=== PATIENT | male | born 1985 | race Caucasian/White ===

== ENCOUNTER 2016-08-13 20:18 | Emergency (ER) | payer BC ==
[~2016-08-13] VITALS: Ht 167.6 cm; Wt 61.2 kg
[2016-08-13 20:20] VITALS: BP 112/68; PULSE 54; RESP 18; TEMP 98.1; O2SAT 100
--- NOTE | 2016-08-13 20:20 | NUR ---
Patient to ER bed 4 to gown for evaluation. Side rails up.
--- NOTE | 2016-08-13 20:21 | NUR ---
PT IS AOX4, C/O CHEST PAIN THAT COMES AND GOES WITH PAIN SCALE 4/10. PT DENIES N/V.
--- NOTE | 2016-08-13 20:21 | NUR ---
ER at bedside examining patient.
[2016-08-13] MEDS ORDERED: ASPIRIN 325 MG TABLET PO ONE (20:45)
[2016-08-13 20:52] LABS: BASOPHILS % (AUTO) 0.5 % (0.0-2.0); EOSINOPHILS # (AUTO) 0.3 K/uL (0.0-0.4); EOSINOPHILS % (AUTO) 3.9 % (0.0-4.0); HEMATOCRIT 45.9 % (36-54); HEMOGLOBIN 15.6 g/dL (14.0-18.0); LYMPHOCYTES # (AUTO) 2.4 K/uL (1.0-5.5); LYMPHOCYTES % (AUTO) 34.2 % (20.5-51.5); MEAN CORPUSCULAR HEMOGLOBIN 29 pg (27-31); MEAN CORPUSCULAR HGB CONC 34 % (32-36); MEAN CORPUSCULAR VOLUME 84 fL (79.0-98.0); MONOCYTES # (AUTO) 0.6 K/uL (0.0-1.0); MONOCYTES % (AUTO) 8.8 % (1.7-9.3); NEUTROPHILS # (AUTO) 3.6 K/uL (1.8-7.7); NEUTROPHILS % (AUTO) 52.6 % (40.0-70.0); PLATELET COUNT (AUTO) 226 K/uL (130-430); RED BLOOD CELL COUNT(AUTO) 5.45 MIL/uL (4.2-6.2); RED CELL DISTRIBUTION WIDTH 12.1 % (9.0-15.0); WHITE BLOOD COUNT (AUTO) 6.9 K/uL (4.8-10.8)
[2016-08-13 21:07] LABS: CALCIUM 9.3 mg/dL (8.4-11.0); CREATININE 1.32 mg/dL (0.55-1.30); POTASSIUM 3.9 mmol/L (3.5-5.1)
[2016-08-13 21:11] LABS: ALBUMIN 4.4 g/dL (3.4-4.8); TOTAL BILIRUBIN 0.6 mg/dL (0.0-1.0); TOTAL PROTEIN, SERUM 7.8 g/dL (6.4-8.3)
[2016-08-13 21:14] LABS: PROTHROMBIN TIME 10.5 SECS (9.5-12.5)
[2016-08-13 22:00] VITALS: BP 112/68; PULSE 54; RESP 18; TEMP 98.1; O2SAT 100
--- NOTE | 2016-08-13 22:00 | NUR ---
Patient given written and verbal discharge instructions and verbalizes understanding. ER MD discussed with patient the results and treatment provided. Patient in stable condition. ID arm band removed. Rx of RANITIDINE HCL 120 MG given. Patient educated on pain management and to follow up with PMD. Pain Scale 0/10. Opportunity for questions provided and answered.
== END 2016-08-13 22:00 | disposition home or self-care (01) ==
LOC: SED 20:18
DX: K21.9 Gastro-esophageal reflux disease without esophagitis (principal)
CPT/HCPCS: 36415; 71010; 80053; 80061; 82550-TC; 83880; 84484; 85025; 85610-TC; 85730-TC; 93005; 99285

== ENCOUNTER 2018-09-15 02:43 | Emergency (ER) | payer BC, OTHER ==
[~2018-09-15] VITALS: Ht 177.8 cm; Wt 74.8 kg
[2018-09-15 02:51] VITALS: BP_SYST 127
[2018-09-15 04:44] VITALS: BP_SYST 135
== END 2018-09-15 04:44 | disposition home or self-care (01) ==
LOC: SED 02:43
DX: M79.604 Pain in right leg (principal)
CPT/HCPCS: 93971; 99284

== ENCOUNTER 2019-01-15 02:26 | Emergency (ER) | payer OTHER ==
[~2019-01-15] VITALS: Ht 175.3 cm; Wt 74.8 kg
[2019-01-15 02:30] VITALS: BP_SYST 121
--- NOTE | 2019-01-15 02:30 | NUR ---
Placed in room 6. Placed on acid loader, blood pressure machine and pulse oximeter. To gown for exam. Side rails up.
--- NOTE | 2019-01-15 02:38 | NUR ---
HÉCTOR Jay at bedside examining patient.
--- NOTE | 2019-01-15 02:40 | NUR ---
Pt C/O chest pain/burning since 1800 yesterday evening. Has hx of anxiety and GERD. Denies any shortness of breath, cough, N/V/D, diaphoresis or any other symptoms at this time. Will continue to monitor.
[2019-01-15] MEDS ORDERED: ALPRAZolam 0.25 MG TABLET PO ONE (02:45)
[2019-01-15] MEDS ORDERED: ASPIRIN 81 MG TAB.CHEW PO ONE (02:45)
[2019-01-15 03:18] LABS: BASOPHILS % (AUTO) 0.5 % (0.0-2.0); EOSINOPHILS # (AUTO) 0.2 K/uL (0.0-0.4); EOSINOPHILS % (AUTO) 2.8 % (0.0-4.0); HEMOGLOBIN 14.7 g/dL (14.0-18.0); LYMPHOCYTES # (AUTO) 2.5 K/uL (1.0-5.5); MEAN CORPUSCULAR HEMOGLOBIN 29 pg (27-31); MEAN CORPUSCULAR HGB CONC 34 % (32-36); MEAN CORPUSCULAR VOLUME 84 fL (79.0-98.0); MONOCYTES # (AUTO) 0.6 K/uL (0.0-1.0); MONOCYTES % (AUTO) 6.8 % (1.7-9.3); NEUTROPHILS # (AUTO) 5.3 K/uL (1.8-7.7); NEUTROPHILS % (AUTO) 60.9 % (40.0-70.0); PLATELET COUNT (AUTO) 231 K/uL (130-430); RED BLOOD CELL COUNT(AUTO) 5.15 MIL/uL (4.2-6.2); RED CELL DISTRIBUTION WIDTH 12.5 % (9.0-15.0); WHITE BLOOD COUNT (AUTO) 8.7 K/uL (4.8-10.8)
[2019-01-15 03:31] LABS: CALCIUM 9.2 mg/dL (8.4-11.0); CREATININE 1.19 mg/dL (0.55-1.30); POTASSIUM 3.7 mmol/L (3.5-5.1)
--- NOTE | 2019-01-15 03:34 | NUR ---
Pt is resting quietly in bed, no acute distress noted at this time. Will continue to monitor.
[2019-01-15 03:37] LABS: ALBUMIN 3.9 g/dL (3.4-4.8); TOTAL BILIRUBIN 0.7 mg/dL (0.0-1.0)
[2019-01-15] MEDS ORDERED: MAG HYDROX/AL HYDROX/SIMETH 30 ML, LIDOCAINE VISCOUS 2% 15ML (PO) 10 ML, DICYCLOMINE HC... PO ONE ×3 (03:45)
[2019-01-15 03:51] VITALS: BP_SYST 112
--- NOTE | 2019-01-15 03:52 | NUR ---
Patient given written and verbal discharge instructions and verbalizes understanding. ER MD discussed with patient the results and treatment provided. Patient in stable condition. ID arm band removed. Rx of Zantac given. Patient educated on pain management and to follow up with PMD. Pain Scale 0. Opportunity for questions provided and answered. Medication side effect fact sheet provided.
== END 2019-01-15 03:52 | disposition home or self-care (01) ==
LOC: SED 02:26
DX: F41.9 Anxiety disorder, unspecified (principal); R07.89 Other chest pain; K21.9 Gastro-esophageal reflux disease without esophagitis
CPT/HCPCS: 36415; 80053; 83880; 84484; 85025; 93005; 99284; J2001

== ENCOUNTER 2019-05-06 02:58 | Emergency (ER) | payer OTHER ==
[~2019-05-06] VITALS: Ht 177.8 cm; Wt 77.1 kg
[2019-05-06 03:25] VITALS: BP_SYST 138
[2019-05-06 04:37] LABS: BASOPHILS % (AUTO) 0.6 % (0.0-2.0); EOSINOPHILS # (AUTO) 0.2 K/uL (0.0-0.4); EOSINOPHILS % (AUTO) 3.2 % (0.0-4.0); HEMATOCRIT 42.7 % (36-54); HEMOGLOBIN 14.9 g/dL (14.0-18.0); LYMPHOCYTES # (AUTO) 1.9 K/uL (1.0-5.5); LYMPHOCYTES % (AUTO) 34.4 % (20.5-51.5); MEAN CORPUSCULAR HEMOGLOBIN 29 pg (27-31); MEAN CORPUSCULAR HGB CONC 35 % (32-36); MEAN CORPUSCULAR VOLUME 84 fL (79.0-98.0); MONOCYTES # (AUTO) 0.5 K/uL (0.0-1.0); MONOCYTES % (AUTO) 9.1 % (1.7-9.3); NEUTROPHILS # (AUTO) 2.9 K/uL (1.8-7.7); NEUTROPHILS % (AUTO) 52.7 % (40.0-70.0); PLATELET COUNT (AUTO) 220 K/uL (130-430); RED BLOOD CELL COUNT(AUTO) 5.12 MIL/uL (4.2-6.2); RED CELL DISTRIBUTION WIDTH 12.9 % (9.0-15.0); WHITE BLOOD COUNT (AUTO) 5.5 K/uL (4.8-10.8)
[2019-05-06 04:56] LABS: CALCIUM 9.1 mg/dL (8.4-11.0); CREATININE 1.05 mg/dL (0.55-1.30); POTASSIUM 3.8 mmol/L (3.5-5.1)
[2019-05-06 04:58] LABS: ALBUMIN 4.6 g/dL (3.4-4.8); TOTAL BILIRUBIN 0.7 mg/dL (0.0-1.0)
[2019-05-06 05:03] LABS: PROTHROMBIN TIME 10.2 SECS (9.5-12.5)
[2019-05-06 05:42] VITALS: BP_SYST 128
== END 2019-05-06 05:42 | disposition home or self-care (01) ==
LOC: SED 02:58
DX: S29.012A Strain of muscle and tendon of back wall of thorax, initial encounter (principal); F32.9 Major depressive disorder, single episode, unspecified; X50.0XXA Overexertion from strenuous movement or load, initial encounter; Y93.89 Activity, other specified; Y92.89 Other specified places as the place of occurrence of the external cause; Y99.8 Other external cause status
CPT/HCPCS: 36415; 71045; 72128; 80053; 84484; 85025; 85379; 85610-TC; 85730-TC; 99284